=== PATIENT | male | born 1980 | race Two or more races ===

== ENCOUNTER → 2024-07-28 | Outpatient (CLI) | payer OTHER, SELFPAY ==
[2024-07-28 13:03] LABS: Basophils # (Auto) 0.1 Thou/mm3 (0.0-0.2); Basophils % (Auto) 1 % (0-2.5); Eosinophils # (Auto) 0.4 Thou/mm3 (0.0-0.5); Eosinophils % (Auto) 5 % (0-10); Hemoglobin 14.8 g/dL (13.5-16.0); Immature Granulocytes % (Auto) 1 % (0-0); Immature Granulocytes Auto 0.05 Thou/mm3 (0.00-0.00); Lymphocytes # (Auto) 2.1 Thou/mm3 (1.0-4.8); Lymphocytes % (Auto) 28 % (10-50); Mean Corpuscular HGB Conc 33.6 g/dl (31.0-37.0); Mean Corpuscular Hemoglobin 31.2 pg (25.0-35.0); Mean Corpuscular Volume 93 fL (80-100); Monocytes # (Auto) 0.8 Thou/mm3 (0.0-0.8); Monocytes % (Auto) 10 % (0-12); Neutrophils # (Auto) 4.1 Thou/mm3 (1.8-7.7); Neutrophils % (Auto) 55 % (37-80); Nucleated Red Blood Cell % 0 /100 WBC (0); Platelet Count 320 Thou/mm3 (140-440); RDW Standard Deviation 41.4 fL (35.1-43.9); Red Blood Count 4.75 Miln/mm3 (4.50-5.90); White Blood Count 7.5 Thou/mm3 (3.8-10.6)
[2024-07-28 13:22] LABS: Sed Rate (ESR) 20 mm/hr (0-15)
[2024-07-28 13:24] LABS: Alanine Aminotransferase 33 U/L (10-49); Albumin, Serum 4.7 gm/dL (3.5-5.0); Albumin/Globulin Ratio 1.7 (1.2-2.2); Anion Gap 8 (7-16); Aspartate Amino Transferase 19 U/L (0-34); BUN/Creatinine Ratio 14 Ratio (12-20); Bilirubin,Total 0.4 mg/dL (0.3-1.2); Blood Urea Nitrogen 11 mg/dL (9-23); C-Reactive Protein < 0.4 mg/dL (0.0-0.9); Calcium 9.6 mg/dL (8.3-10.6); Calcium (Corrected) 9.6 mg/dL (8.5-10.1); Chloride 99 mMol/L (98-107); Cholesterol 170 mg/dL (132-200); Creatinine (Component) 0.8 mg/dL (0.6-1.3); Globulin 2.7 gm/dL (2.3-3.5); Glucose 125 mg/dL (74-106); HDL Cholesterol 50 mg/dL (40-60); Osmolality,Calculated 270 (275-295); Potassium 4.6 mMol/L (3.4-5.1); Sodium 135 mMol/L (136-145); Total Protein 7.4 gm/dL (5.7-8.2); Triglycerides 176 mg/dL (30-150); eGFR > 60 See Note
[2024-07-28 13:25] LABS: Alkaline Phosphatase 95 U/L (46-116); Cardiac Risk Estimate 3.4 RATIO (4.0-6.7); LDL Cholesterol,Calculated 85 mg/dL (0-130); Thyroid Stimulating Hormone 1.44 uIU/mL (0.55-4.78)
[2024-07-28 14:46] LABS: Glucose Estimated Average 140 mg/dL (80-131); Hemoglobin A1C 6.5 % Hgb (4.8-6.0)
[2024-08-04 06:25] LABS: Sex Hormone Binding Globulin* 19 nmol/L (10-50); Testosterone, Free,Dialysis 53.3 pg/mL (35.0-155.0); Testosterone, Total, Dialysis 287 ng/dL (250-1100)
== END | disposition home or self-care (01) ==
PROVIDERS: PCP Family Medicine; Referring Provider Physician Assistant; Visit Provider Physician Assistant
DX: I10 Essential (primary) hypertension (principal); M54.2 Cervicalgia
CPT/HCPCS: 36415; 80053; 80061; 83036; 84270; 84402; 84403; 84443; 85025; 85652; 86140

== ENCOUNTER → 2024-08-22 | Outpatient (CLI) | payer OTHER, SELFPAY ==
--- NOTE | 2024-08-22 14:21 | XR_ITS ---
EXAMINATION: Cervical spine, 5 views Technique: Cervical spine AP, AP odontoid, lateral, bilateral obliques, 5 views Exam date and time: August 22, 2024 1433 hrs. Indications: Neck pain with numbness in the arms beginning 2 years ago Findings: Adequate alignment cervical vertebral bodies. No cervical fractures No significant neural foraminal stenosis The odontoid is intact. No significant disc narrowing Impression: No cervical fracture. No significant arthritic change.
== END | disposition home or self-care (01) ==
PROVIDERS: PCP Physician Assistant; Referring Provider Physician Assistant; Visit Provider Physician Assistant
DX: M54.2 Cervicalgia (principal)
CPT/HCPCS: 72050

== ENCOUNTER → 2025-02-07 | Outpatient (CLI) | payer OTHER, SELFPAY ==
--- NOTE | 2025-02-07 08:00 | XR_ITS ---
Examination: MRI cervical spine without intravenous contrast Date and time of exam: February 07, 2025 0902 hours INDICATIONS: Neck pain radiating down both arms one year Technique: Multiple axial and sagittal sections of the cervical spine to been obtained. T2 weighted sagittal sections, TR 3, 270, TE 117 T1-weighted sagittal sections, TR 500, TE 11 T1-weighted axial sections, TR 607, TE 12, axial sections TR 18, TE 27 and T2 weighted transverse sections, TR 3920, TE 122. Findings: Satisfactory alignment cervical vertebral bodies. No cervical fracture. Intact odontoid Mild diffuse cervical disc desiccation. No localized enlargement cervical cord. C2-C3 no disc protrusion C3-C4 no disc protrusion C4-C5 no disc protrusion C5-C6 mild right neural foraminal stenosis C6-C7 mild left neural foraminal stenosis C7-T1 moderate bilateral neuroforaminal stenosis IMPRESSION: C5-C6 mild right neural foraminal stenosis C6-C7 mild left neural foraminal stenosis C7-T1 moderate bilateral neural foraminal stenosis
== END | disposition home or self-care (01) ==
LOC: SMRI 07:37
PROVIDERS: PCP Physician Assistant; Referring Provider Physician Assistant; Visit Provider Physician Assistant
DX: M48.02 Spinal stenosis, cervical region (principal); M48.03 Spinal stenosis, cervicothoracic region
CPT/HCPCS: 72141